=== PATIENT | female | born 1980 | race Caucasian/White ===

== ENCOUNTER 2016-11-26 20:58 | Emergency (ER) | payer SELFPAY | END 2016-11-26 23:38 | disposition home or self-care (01) | LOC: FER 20:58 | DX: S02.2XXA Fracture of nasal bones, initial encounter for closed fracture (principal); S02.40CA Maxillary fracture, right side, initial encounter for closed fracture; S80.12XA Contusion of left lower leg, initial encounter; S80.11XA Contusion of right lower leg, initial encounter; S05.11XA Contusion of eyeball and orbital tissues, right eye, initial encounter; S05.12XA Contusion of eyeball and orbital tissues, left eye, initial encounter; S30.811A Abrasion of abdominal wall, initial encounter; M79.602 Pain in left arm; M54.2 Cervicalgia; F17.210 Nicotine dependence, cigarettes, uncomplicated; Y04.2XXA Assault by strike against or bumped into by another person, initial encounter; Y92.009 Unspecified place in unspecified non-institutional (private) residence as the place of occurrence of the external cause; Y07.01 Husband, perpetrator of maltreatment and neglect | CPT/HCPCS: 70450; 70486; 73060 ==

== ENCOUNTER 2020-10-16 21:46 | Emergency (ER) | payer OTHER ==
[~2020-10-16 21:46] MED LIST: FLEXERIL10 MG PO; MOTRIN600 MG PO
[2020-10-17] MEDS ORDERED: NORCO 5-325 TA1 EACH PO (00:03)
[2020-10-17] MEDS ORDERED: IBUPROFEN800 MG PO (00:03)
[2020-10-17] MEDS ORDERED: TESSALON PERLE100 MG PO (00:05)
[2020-10-17] MEDS ORDERED: MEDROL 4MG DOSEP4 MG PO (00:05)
[2020-10-18] MEDS ORDERED: ATARAX25 MG PO (12:30)
[2020-10-18] MEDS ORDERED: ALIVE PRENATAL1 EACH PO (12:31)
[2020-10-20] MEDS ORDERED: ALIVE WOMEN'S1 EAC2 PO (07:04)
[2020-10-20] MEDS ORDERED: CLARITIN10 MG PO (07:04)
[2020-10-20] MEDS ORDERED: ACETAMINOPHEN500 M1 PO (07:04)
[2020-10-20] MEDS ORDERED: NORCO 5-325 TA1 EACH PO (07:24)
== END 2020-10-17 00:25 | disposition home or self-care (01) ==
LOC: FER 21:46
DX: S82.61XA Displaced fracture of lateral malleolus of right fibula, initial encounter for closed fracture (principal); J45.909 Unspecified asthma, uncomplicated; F17.210 Nicotine dependence, cigarettes, uncomplicated; Z88.5 Allergy status to narcotic agent; Z79.899 Other long term (current) drug therapy; X50.1XXA Overexertion from prolonged static or awkward postures, initial encounter; Y93.21 Activity, ice skating; Y92.830 Public park as the place of occurrence of the external cause
CPT/HCPCS: 73610; 96372; J1885

== ENCOUNTER → 2020-10-20 | Day surgery (SDC) | payer OTHER ==
[~2020-10-20] MED LIST changes: +ACETAMINOPHEN500 M1 PO; +ALIVE PRENATAL1 EACH PO; +ALIVE WOMEN'S1 EAC2 PO; +ATARAX25 MG PO; +CLARITIN10 MG PO; +IBUPROFEN800 MG PO; +MEDROL 4MG DOSEP4 MG PO; +NORCO 5-325 TA1 EACH PO; +TESSALON PERLE100 MG PO
[2020-10-20 07:10] LABS: HCG (URINE) SCREEN NEGATIVE (NEGATIVE)
[2020-10-20 07:19] LABS: HCT 37.1 % (37.0-47.0); HGB 12.7 g/dl (12.5-16.0); MCH 30.2 pg (25.0-31.0); MCHC 34.2 g/dL (32.0-36.0); MCV 88.1 fL (78.0-100.0); MPV 9.9 fL (6.0-9.5); RBC 4.21 M/uL (4.20-5.40); RDW 12.4 % (11.5-14.0); WBC 8.1 K/uL (4.0-10.5)
[2020-10-20 07:47] LABS: ALBUMIN 3.4 g/dL (3.4-5.0); BILIRUBIN - TOTAL 0.4 mg/dL (0.2-1.0); CREATININE 0.8 mg/dL (0.51-0.95); GLOBULIN (CALCULATION) 3.4 g/dL; POTASSIUM 3.5 mmol/L (3.5-5.1); TOTAL PROTEIN 6.8 g/dL (6.4-8.2)
== END | disposition home or self-care (01) ==
LOC: FAS 06:40
PROVIDERS: Orthopaedic Surgery
DX: S82.61XA Displaced fracture of lateral malleolus of right fibula, initial encounter for closed fracture (principal); X58.XXXA Exposure to other specified factors, initial encounter; K21.9 Gastro-esophageal reflux disease without esophagitis; F17.210 Nicotine dependence, cigarettes, uncomplicated; Z20.822 Contact with and (suspected) exposure to COVID-19; Z98.51 Tubal ligation status; Z90.49 Acquired absence of other specified parts of digestive tract; Z88.6 Allergy status to analgesic agent; Z88.5 Allergy status to narcotic agent; Z98.890 Other specified postprocedural states
CPT/HCPCS: 36415; 73600; 76000; 80053; 84703; C1713; J0690; J1100; J2250; J2405; J2704; J2795; J3010; J7120